=== PATIENT | female | born 1965 | race Caucasian/White ===

== ENCOUNTER 2018-02-27 05:15 | Emergency (ER) | payer SELFPAY ==
[~2018-02-27] VITALS: Ht 167.6 cm; Wt 71.0 kg
[~2018-02-27 05:15] MED LIST: GLIP5TAB12; LOSA50TA3; METF500T; SOMA; VICODIN
[2018-02-27] MEDS ORDERED: SODIUM CHLORIDE 0.9% 1,000 ML IV ONE (06:45)
[2018-02-27] MEDS ORDERED: KETOROLAC 30MG/ML VIAL IV STA (06:45)
[2018-02-27 07:16] LABS: BASOPHILS % 0.3 % (0.0-2.0); EOSINOPHILS % 1.9 % (0.0-5.0); HEMATOCRIT. 39.7 % (36.0-48.0); HEMOGLOBIN. 13.6 g/dL (12.0-16.0); LYMPHOCYTES % 23.5 % (20.0-50.0); MEAN CORPUSCULAR HEMOGLOBIN 30.7 pg (28.0-32.0); MEAN CORPUSCULAR VOLUME 89.4 fL (81.0-99.0); MEAN PLATELET VOLUME 9.6 fl (7.4-10.4); MONOCYTES % 8.5 % (2.0-8.0); NEUTROPHILS % 65.8 % (40.0-76.0); PLATELET 201 x1000/uL (130-400); RED BLOOD CELL COUNT 4.44 mill/uL (4.2-5.4); RED CELL DISTRIBUTION WIDTH 12.8 % (11.6-14.6)
[2018-02-27 07:21] LABS: CLARITY URINE CLEAR (CLEAR); COLOR URINE YELLOW (YELLOW); KETONES URINE 2+ (NEGATIVE); LEUKOCYTE ESTERASE URINE NEGATIVE (NEGATIVE); NITRITE URINE NEGATIVE (NEGATIVE); OCCULT BLOOD URINE NEGATIVE (NEGATIVE); PH URINE 6.5 (4.5-8.0); PROTEIN URINE 1+ (NEGATIVE); SPECIFIC GRAVITY URINE 1.053 (1.005-1.030); UROBILINOGEN URINE 0.2 E.U./dL (0.2-1.0)
[2018-02-27 07:23] LABS: CHLORIDE 99 mEq/L (98-107)
[2018-02-27 09:14] VITALS: BP 121/67
== END 2018-02-27 09:24 | disposition home or self-care (01) ==
LOC: ER 05:15
DX: B34.9 Viral infection, unspecified (principal); E11.9 Type 2 diabetes mellitus without complications; I10 Essential (primary) hypertension; Z90.49 Acquired absence of other specified parts of digestive tract
CPT/HCPCS: 36415; 71045; 80053; 81003; 85025; 87804; 96374; 99284; J1885; J7030

== ENCOUNTER 2018-03-25 14:27 | Emergency (ER) | payer MEDICAID ==
[~2018-03-25] VITALS: Ht 167.6 cm; Wt 61.0 kg
[2018-03-25] MEDS ORDERED: DIAZEPAM 5 MG TABLET PO ONE (19:15)
[2018-03-25] MEDS ORDERED: KETOROLAC 30MG/ML VIAL IM ONE (19:15)
[2018-03-25 21:24] VITALS: BP 164/82
== END 2018-03-25 21:26 | disposition home or self-care (01) ==
LOC: ER 17:28
DX: S46.911A Strain of unspecified muscle, fascia and tendon at shoulder and upper arm level, right arm, initial encounter (principal); M94.0 Chondrocostal junction syndrome [Tietze]; E11.9 Type 2 diabetes mellitus without complications; I10 Essential (primary) hypertension; Z90.49 Acquired absence of other specified parts of digestive tract; Z79.899 Other long term (current) drug therapy; X58.XXXA Exposure to other specified factors, initial encounter; Y93.89 Activity, other specified; Y92.89 Other specified places as the place of occurrence of the external cause; Y99.8 Other external cause status
CPT/HCPCS: 93005; 96372; 99283; J1885

== ENCOUNTER 2019-03-07 06:03 | Emergency (ER) | payer MEDICARE ==
[~2019-03-07] VITALS: Ht 167.6 cm; Wt 69.0 kg
[2019-03-07] MEDS ORDERED: ACETAMINOPHEN WITH CODEINE 300/30MG TABLET PO STA (06:35)
[2019-03-07] MEDS ORDERED: FLUORESCEIN SODIUM 1MG/STRIP RIGHTEYE ONE (07:30)
[2019-03-07] MEDS ORDERED: KETOROLAC 60MG/2ML VIAL IM ONE (08:15)
[2019-03-07 08:44] VITALS: BP 156/71
== END 2019-03-07 08:47 | disposition home or self-care (01) ==
LOC: ER 06:03
DX: R51 Headache (principal); E11.9 Type 2 diabetes mellitus without complications; I10 Essential (primary) hypertension; Z90.49 Acquired absence of other specified parts of digestive tract
CPT/HCPCS: 70450; 96372; 99284; J1885

== ENCOUNTER 2019-05-21 08:08 | Emergency (ER) | payer MEDICARE, OTHER ==
[~2019-05-21] VITALS: Ht 162.6 cm; Wt 71.0 kg
[2019-05-21] MEDS ORDERED: KETOROLAC 60MG/2ML VIAL IM ONE (09:00)
[2019-05-21 09:31] VITALS: BP 138/89
== END 2019-05-21 09:36 | disposition home or self-care (01) ==
LOC: ER 08:08
DX: M54.6 Pain in thoracic spine (principal); E11.9 Type 2 diabetes mellitus without complications; I10 Essential (primary) hypertension; Z90.49 Acquired absence of other specified parts of digestive tract; Z79.899 Other long term (current) drug therapy
CPT/HCPCS: 96372; 99283; J1885

== ENCOUNTER 2019-08-04 13:11 | Inpatient (IN) | payer MEDICAID, OTHER, SELFPAY ==
[~2019-08-04] VITALS: Ht 165.1 cm; Wt 71.2 kg
[2019-08-04] MEDS ORDERED: ACETAMINOPHEN 500MG TABLET PO ONE (13:30)
[2019-08-04] MEDS ORDERED: PIPERACILLIN/TAZ 3.375G PREMIX 50 ML IV ONE (15:30)
[2019-08-04 15:50] LABS: BASOPHILS % 0.1 % (0.0-2.0); HEMATOCRIT. 40.3 % (36.0-48.0); HEMOGLOBIN. 13.5 g/dL (12.0-16.0); LYMPHOCYTES % 8.7 % (20.0-50.0); MEAN CORPUSCULAR HEMOGLOBIN 29.6 pg (28.0-32.0); MEAN CORPUSCULAR VOLUME 88.1 fL (81.0-99.0); MEAN PLATELET VOLUME 9.1 fl (7.4-10.4); MONOCYTES % 7.5 % (2.0-8.0); NEUTROPHILS % 83.7 % (40.0-76.0); PLATELET 277 x1000/uL (130-400); RED BLOOD CELL COUNT 4.57 mill/uL (4.2-5.4); RED CELL DISTRIBUTION WIDTH 13.6 % (11.6-14.6)
[2019-08-04 15:54] LABS: CHLORIDE 105 mEq/L (98-107)
[2019-08-04 16:02] LABS: D-DIMER 0.66 mg/L FEU (<0.50); PROTHROMBIN TIME 10.4 sec (9.6-11.0)
[2019-08-04 16:03] LABS: CLARITY URINE CLEAR (CLEAR); COLOR URINE DARK YELLOW (YELLOW); CREATINE KINASE 40 IU/L (26-192); KETONES URINE 4+ (NEGATIVE); LEUKOCYTE ESTERASE URINE NEGATIVE (NEGATIVE); NITRITE URINE NEGATIVE (NEGATIVE); OCCULT BLOOD URINE NEGATIVE (NEGATIVE); PROTEIN URINE 2+ (NEGATIVE); SPECIFIC GRAVITY URINE 1.043 (1.005-1.030)
[2019-08-04] MEDS ORDERED: ENOXAPARIN 80MG/0.8ML SYR SUBCUT ONE (16:30)
[2019-08-04] MEDS ORDERED: BENZONATATE 100MG CAPSULE PO PRN (17:15)
[2019-08-04] MEDS ORDERED: ACETAMINOPHEN 325MG TABLET PO PRN (17:15)
[2019-08-04 18:04] VITALS: BP 139/67
[2019-08-04 18:06] VITALS: BP 139/67
[2019-08-04] MEDS ORDERED: AZITHROMYCIN 500 MG TABLET PO NR (18:30)
[2019-08-04 20:00] VITALS: BP 146/79
[2019-08-04] MEDS: ASCORBIC ACID 500 MG TABLET PO SCH (21:08)
[2019-08-04] MEDS: CEFTRIAXONE 1 G PREMIX 50 ML IV SCH (22:05)
[2019-08-05 00:26] VITALS: BP 144/79
[2019-08-05] MEDS ORDERED: INSU100I24 SQ (02:16)
[2019-08-05] MEDS ORDERED: SIMV10TA97 PO (02:16)
[2019-08-05] MEDS ORDERED: GLIM4TAB36 PO (02:16)
[2019-08-05] MEDS ORDERED: EMPA1TAB7 PO (02:16)
[2019-08-05] MEDS ORDERED: EMPA25TA PO (02:16)
[2019-08-05 04:00] VITALS: BP 137/77
[2019-08-05 08:00] VITALS: BP 121/74
[2019-08-05] MEDS ORDERED: AZITHROMYCIN 250 MG TABLET PO SCH (09:00)
[2019-08-05] MEDS ORDERED: ENOXAPARIN 40MG/0.4ML SYR SUBCUT SCH (09:00)
[2019-08-05] MEDS ORDERED: ZINC SULFATE 220 MG ( 50 ) CAPSULE PO SCH (09:00)
[2019-08-05] MEDS: ASCORBIC ACID 500 MG TABLET PO SCH (09:33)
[2019-08-05] MEDS ORDERED: ENOXAPARIN 30MG/0.3ML SYR SUBCUT NR (11:30)
[2019-08-05 12:00] VITALS: BP 137/66
[2019-08-05] MEDS ORDERED: ALBUTEROL 6.7GM HFA INHALER ORI SCH (12:00)
[2019-08-05 16:00] VITALS: BP 100/58
[2019-08-05] MEDS: CEFTRIAXONE 1 G PREMIX 50 ML IV SCH (19:42)
[2019-08-05] MEDS ORDERED: GUAIFENESIN 600MG ER TABLET PO SCH (21:00)
[2019-08-05] MEDS ORDERED: ENOXAPARIN 80MG/0.8ML SYR SUBCUT SCH (22:00)
== END 2019-08-05 19:55 | disposition home or self-care (01) | DRG 720 ==
LOC: ER 13:53 → EDBEDREQ 15:22 → EDBEDREQSVC 15:22 → EDBEDREQTM 15:22 → ENRESERV 16:49 → 7EST 18:05
PROVIDERS: ADMIT Internal Medicine; ATTEND Internal Medicine
DX: A41.89 Other specified sepsis (principal); J96.01 Acute respiratory failure with hypoxia; U07.1 COVID-19; D68.59 Other primary thrombophilia; E44.1 Mild protein-calorie malnutrition; E11.9 Type 2 diabetes mellitus without complications; D72.810 Lymphocytopenia; E78.00 Pure hypercholesterolemia, unspecified; J12.89 Other viral pneumonia; E78.5 Hyperlipidemia, unspecified; I10 Essential (primary) hypertension; R79.82 Elevated C-reactive protein (CRP); G89.29 Other chronic pain; Z20.828 Contact with and (suspected) exposure to other viral communicable diseases; M54.9 Dorsalgia, unspecified; Z79.84 Long term (current) use of oral hypoglycemic drugs; Z79.899 Other long term (current) drug therapy; Z68.26 Body mass index [BMI] 26.0-26.9, adult; Z90.49 Acquired absence of other specified parts of digestive tract
CPT/HCPCS: 36415; 71045; 80053; 81003; 82550; 82728; 83036; 83605; 83615; 83880; 84145; 84484; 85025; 85379; 85384; 86140; 93005; 99291; J0696; J1650; J2543; U0003-CS